=== PATIENT | female | born 2000 | race Caucasian/White ===

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

== ENCOUNTER 2020-01-22 18:55 | Emergency (ER) | payer MEDICAID ==
[~2020-01-22] VITALS: Ht 160 cm; Wt 55.0 kg
[2020-01-22 19:12] VITALS: BP 140/94
--- NOTE | 2020-01-22 20:43 | NUR ---
PT EDUCATED ON ER PROCESS AND VERBALIZES UNDERSTANDING. PT WITH CALL LIGHT WITHIN REACH. PT AMBULATES TO RESTROOM WITH STEADY GAIT AT THIS TIME. CLINICAL SCREEN INFORMATION COLLECTED FROM PT
[2020-01-22] MEDS ORDERED: IBUPROFEN 200 MG TABLET ONE (21:30)
[2020-01-22] MEDS ORDERED: IBUPROFEN 200 MG TABLET PO ONE (21:30)
--- NOTE | 2020-01-22 21:32 | NUR ---
PT MEDICATED PER MAR FOR PAIN AT THIS TIME.
--- NOTE | 2020-01-22 22:28 | NUR ---
PT SPLINTED AND D/C WITH D/C SUMMARY AND F/U INSTRUCTIONS. ALL QUESTIONS ANSWERED. PT AMBULATES TO REGISTRATION DESK WITH STEADY GAIT FOR D/C HOME AND DENIES ANY OTHER NEEDS PERTAINING TO THIS VISIT.
== END 2020-01-22 22:28 | disposition home or self-care (01) ==
LOC: ED 19:25
DX: S60.222A Contusion of left hand, initial encounter (principal); F17.210 Nicotine dependence, cigarettes, uncomplicated; X58.XXXA Exposure to other specified factors, initial encounter; Y93.89 Activity, other specified; Y92.89 Other specified places as the place of occurrence of the external cause; Y99.8 Other external cause status
CPT/HCPCS: 29125; 99283; 99406